=== PATIENT | female | born 1940 | race African-American/Black ===

== ENCOUNTER 2022-10-27 11:44 | Emergency (ER) | payer OTHER ==
[2022-10-27] MEDS ORDERED: traMADol HCl 50 MG TAB ONE (12:53)
== END 2022-10-27 13:11 | disposition home or self-care (01) ==
LOC: CSHERS 11:44
DX: I10 Essential (primary) hypertension (principal); M79.675 Pain in left toe(s); E11.9 Type 2 diabetes mellitus without complications; E78.00 Pure hypercholesterolemia, unspecified; F17.210 Nicotine dependence, cigarettes, uncomplicated
CPT/HCPCS: 99283